=== PATIENT | female | born 1985 | race Caucasian/White ===

== ENCOUNTER 2019-07-07 11:19 | Emergency (ER) | payer MEDICAID ==
[~2019-07-07] VITALS: Ht 162.6 cm; Wt 61.3 kg
[~2019-07-07 11:19] MED LIST: NPH10OT LEFT EAR
[2019-07-07 11:28] VITALS: BP 102/58; PULSE 74; RESP 16; Ht 162.6 cm; Wt 61.3 kg
== END 2019-07-07 12:54 | disposition left against medical advice (07) ==
LOC: FTE 11:19
DX: H60.92 Unspecified otitis externa, left ear (principal)
CPT/HCPCS: 99283